=== PATIENT | male | born 1980 | race Caucasian/White ===

== ENCOUNTER 2025-05-07 15:43 | Inpatient (IN) | payer MEDICAID, OTHER ==
[~2025-05-07] VITALS: Ht 172.7 cm; Wt 115.5 kg
--- NOTE | 2025-05-07 17:23 | ED.PDOC ---
GI ASSESSMENT HPI Comments 44 year old male presents to the ED with a chief complaint of jaundice onset 2 weeks. Patient states he has been experiencing jaundice for the past 2 weeks, for the past month has been experiencing nausea/vomiting. For the past year, patient has experienced about 3 episodes, he experiences nausea/vomiting and abdominal pain for a few weeks, resolves on its own. Last PCP visit was over 12 years ago. Denies any PMHx as well as diarrhea, fever, chills, diarrhea, constipation, dysuria, hematuria, hematemesis, fever, chills, chest pain, shortness of breath. No other symptoms or modifying factors present at this time. Chief Complaint: Abdominal Pain Time Seen by MD: 17:15 Reviewed Notes: Nurses Notes, Medications, Allergies Allergies: Coded Allergies: NO KNOWN ALLERGIES (Unverified , 05/07/25) Information Source: Patient Mode of Arrival: Ambulatory Timing: Weeks Duration: Since onset Prehospital treatment: None Severity: Moderate Recent: None Recent Hx of: None Pain Location: Diffuse Modifying Factors: Nothing Associated sign and symptoms: Nausea, Vomiting, Abdominal Pain, Other Past Medical History PAST MEDICAL HISTORY: Denies Surgical History: Denies all surgeries Family History Family History: Reviewed,noncontributory to illness, No family hx of Cancer, No family hx of DM, No family hx of Heart shawanda, No family hx of HTN, No family hx ofKidney shawanda, No family hx of Liver shawanda, No family hx of Lung shawanda, No family hx of Stroke Social History Smoker: Non-Smoker Alcohol: Denies ETOH Use Drugs: Denies Drug Use Lives In: Home Constitutional: denies: chills, diaphoresis, fatigue, fever, malaise, sweats, weakness, others EENTM: denies: blurred vision, double vision, ear bleeding, ear discharge, ear drainage, ear pain, ear ringing, eye pain, eye redness, hearing loss, mouth pain, mouth swelling, nasal discharge, nose bleeding, nose congestion, nose pain, photophobia, tearing, throat pain, throat swelling, voice changes, others Respiratory: denies: cough, hemoptysis, orthopnea, SOB at rest, shortness of breath, SOB with excertion, stridor, wheezing, others Cardiovascular: denies: chest pain, dizzy spells, diaphoresis, Dyspnea on exertion, edema, irregular heart beat, left arm pain, lightheadedness, palpitations, PND, syncope, others Gastrointestinal: reports: abdominal pain, nausea, vomiting; denies: abdomen distended, blood streaked bowels, constipated, diarrhea, dysphagia, difficulty swallowing, hematemesis, melena, poor appetite, poor fluid intake, rectal bleeding, rectal pain, others Genitourinary: denies: burning, dysuria, flank pain, frequency, hematuria, incontinence, penile discharge, penile sore, pain, testicle pain, testicle swelling, urgency, others Neurological: denies: dizziness, fainting, headache, left sided numbness, left sided weakness, numbness, paresthesia, pre-existing deficit, right sided numbness, right sided weakness, seizure, speech problems, tingling, tremors, weakness, others Musculoskeletal: denies: back pain, gout, joint pain, joint swelling, muscle pain, muscle stiffness, neck pain, others Integumetry: reports: change in color (jaundice); denies: bruises, change in hair/nails, dryness, laceration, lesions, lumps, rash, wounds, others Allergic/Immunocompromised: denies: Difficulty Healing, Frequent Infections, Hives, Itching, others Hematologic/Lymphatic: denies: anemia, blood clots, easy bleeding, easy bruising, swollen glands, others Endocrine: denies: excessive hunger, excessive sweating, excessive thirst, excessive urination, flushing, intolerance to cold, intolerance to heat, unexpl ained weight gain, unexplained weight loss, others Psychiatric: denies: anxiety, bipolar disorder, depression, hopeless, panic disorder, schizophrenia, sleepless, suicidal, others All Other Systems: Reviewed and Negative Physical Exam General Appearance: Normal HEENT: Normal ENT Inspection, Pharynx Normal, TMs Normal Neck: Full Range of Motion, Non-Tender, Normal, Normal Inspection Respiratory: Chest Non-Tender, Lungs Clear, No Accessory Muscle Use, No Respiratory Distress, Normal Breath Sounds Cardiovascular: No Edema, No JVD, No Murmur, No Gallop, Normal Peripheral Pulses, Regular Rate/Rhythm Breast Exam: Deferred Gastrointestinal: Distended, No Organomegaly, No Pulsatile Mass, Normal Bowel Sounds, Soft Genitalia: Deferred Pelvic: Deferred Rectal: Deferred Extremities: No calf tenderness, Normal capillary refill, Normal inspection, Normal range of motion, Non-tender, No pedal edema Musculoskeletal : Apperance: Normal Neurologic: Alert, user interface artist II-XII nml as Tested, No Motor Deficits, Normal Affect, Normal Mood, No Sensory Deficits Cerebellar Function: Normal Reflexes: Normal Skin: Jaundice Lymphatic: No Adenopathy Was a procedure done? Was a procedure done?: No GI differential Dx Differential Diagnosis: Appendicitis, Bowel Obstruction, Cholangitis, Cholecystitis Other Differential Diagnosis Cirrhosis, liver failure, X-Ray, Labs, Meds, VS Vital Signs Date Time Temp Pulse Resp B/P (MAP) Pulse Ox O2 Delivery O2 Flow Rate FiO2 05/07/25 19:30 98.4 91 14 120/75 (90) 97 98.4 05/07/25 17:47 98.4 96 12 118/71 (87) 97 98.4 05/07/25 17:47 96 12 97 Room Air* 0 21 05/07/25 15:46 97.9 90 16 122/70 97 97.9 Lab Test 05/07/25 19:35 05/07/25 17:53 Range/Units Urine Color Dark-orange Yellow Urine Clarity Turbid H Clear Urine pH 6.0 5.0-9.0 Urine Specific [place] 1.019 1.001-1.035 Urine Protein Trace H Negative Urine Ketones Negative Negative Urine Blood Negative Negative /uL Urine Nitrite Negative Negative Urine Bilirubin 4+ Negative Urine Urobilinogen 2 H Negative mg/dL Urine Leukocyte Esterase Negative Negative /uL Urine RBC 1 0 - 3 /hpf Urine Microscopic WBC 6 H 0-3 /HPF Urine Squamous Epithelial Cells Few <5 /hpf Urine Bacteria Mod H None Seen /hpf Urine Mucus Few None Seen Urine Glucose Normal Normal mg/dL White Blood Count 9.7 4.4-10.8 10^3/uL Red Blood Count 2.98 L 4.5-5.90 10^6/uL Hemoglobin 12.2 L 13.5-17.5 g/dL Hematocrit 33.4 L 41.0-53.0 % Mean Corpuscular Volume 112.2 H 80.0-100.0 fL Mean Corpuscular Hemoglobin 41.1 H 28.0-32.0 pg Mean Corpuscular Hemoglobin Concent 36.6 H 32.0-36.0 g/dL Red Cell Distribution Width 18.7 H 11.8-14.3 % Platelet Count 268 140-450 10^3/uL Mean Platelet Volume 6.8 L 6.9-10.8 fL Neutrophils (%) (Auto) 80.8 H 37.0-80.0 % Lymphocytes (%) (Auto) 9.5 L 10.0-50.0 % Monocytes (%) (Auto) 7.3 0.0-12.0 % Eosinophils (%) (Auto) 1.6 0.0-7.0 % Basophils (%) (Auto) 0.8 0.0-2.0 % Neutrophils # (Auto) 7.9 1.6-8.6 10 ^3/uL Lymphocytes # (Auto) 0.9 0.4-5.4 10 ^3/uL Monocytes # (Auto) 0.7 0-1.3 10 ^3/uL Eosinophils # (Auto) 0.2 0-0.8 10 ^3/uL Basophils # (Auto) 0.1 0-0.2 10 ^3/uL Nucleated Red Blood Cells 0.1 % Prothrombin Time 13.5 H 9.3-11.8 sec Prothrombin Time INR 1.31 H 0.9-1.15 D-Dimer, Quantitative 0.80 H 0.0-0.49 mg/L FEU Sodium Level 133 L 136-145 mmol/L Potassium Level 3.1 L 3.5-5.1 mmol/L Chloride Level 95 L 98-107 mmol/L Carbon Dioxide Level 25 20-31 mmol/L Anion Gap 13 5-15 Blood Urea Nitrogen 10 9-23 mg/dL Creatinine 1.42 H 0.700-1.30 mg/dL Glomerular Filtration Rate Calc 62 >90 mL/min BUN/Creatinine Ratio 7.0 L 10.0-20.0 Serum Glucose 106 74-106 mg/dL Calcium Level 8.2 L 8.7-10.4 mg/dL Total Bilirubin 29.1 H 0.2-1.0 mg/dL Aspartate Amino Transferase (AST) 260 H 13-40 U/L Alanine Aminotransferase (ALT) 82 H 7-40 U/L Alkaline Phosphatase 242 H 46-116 U/L Total Protein 5.7 5.7-8.2 g/dL Albumin 3.0 L 3.2-4.8 g/dL Lipase 34 12-53 U/L X-Ray, Labs, Meds, VS Comment Gallbladder ultrasound: IMPRESSION: Dilated 7 mm common duct. Please correlate with laboratory values and consider MRCP if warranted. Cholelithiasis with mild gallbladder wall thickening. Hepatomegaly with diffuse hepatic steatosis. Right pleural effusion. Trace ascites. Moderate splenomegaly. Patient will be admitted for general surgery consult Patient will be started on ceftriaxone and Flagyl Time of 1ST Reevaluation: 17:45 Reevaluation 1ST: Unchanged Patient Education/Counseling: Diagnosis, Treatment, Prognosis Family Education/Counseling: No Family Present SEPSIS Sepsis Screen Date sepsis recognized/suspect: May 07, 2025 Time Sepsis recognized/suspect: 1547 Recent Procedure: No On Antibiotic Therapy: No Respiratory Rate >20: No Heart Rate >90: No Temp<36 C (96.8 F) or >38.3 C: No SBP <90 or MAP <65 mmHG: No New Acute Mental Status Change: No Is the patient on CPAP, BIPAP,: No Physician Orders Ct Ab Pel Wo Con-No Oral Or Iv (05/07/25 17:16) Gallbladder (05/07/25 18:57) Metronidazole 500mg/100ml (Flagyl 500mg/ (05/07/25 20:00) Vital Signs Date Time Temp Pulse Resp B/P (MAP) Pulse Ox O2 Delivery O2 Flow Rate FiO2 05/07/25 19:30 98.4 91 14 120/75 (90) 97 98.4 05/07/25 17:47 98.4 96 12 118/71 (87) 97 98.4 05/07/25 17:47 96 12 97 Room Air* 0 21 05/07/25 15:46 97.9 90 16 122/70 97 97.9 Laboratory Tests Test 05/07/25 17:53 White Blood Count 9.7 10^3/uL (4.4-10.8) Departure 1 Departure Time of Disposition: 20:06 Impression: Primary Impression: Cholecystitis Disposition: ADMITTED INPATIENT Condition: Stable Critical Care Note Critical Care Time?: No Stability Stability form required: No Heart Score Heart Score: Heart Score Response (Comments) Value History N/A 0 EKG N/A 0 Age N/A 0 Risk Factors N/A 0 Troponin N/A 0 Total 0 I personally scribed for JAGDISH FORD ([email or web address]) on 05/07/25 at 17:23. Electronically submitted by Nica Mcfadden ([email or web address]). JAGDISH FORD May 07, 2025 17:23
[2025-05-07 17:47] VITALS: PULSE 96; RESP 12; O2SAT 97
[2025-05-07 18:12] LABS: Hematocrit 33.4 % (41.0-53.0); Hemoglobin 12.2 g/dL (13.5-17.5); Mean Corpuscular Hemoglobin 41.1 pg (28.0-32.0); Mean Corpuscular Volume 112.2 fL (80.0-100.0); Nucleated Red Blood Cells % 0.1 %
--- NOTE | 2025-05-07 18:42 | DVH ---
Exam: CT CT AB PEL WO CON-NO ORAL OR IV History: jaundice Comparison Study: None TECHNIQUE: Multidetector CT of the abdomen and pelvis without IV contrast. Axial, coronal and sagitta l multiplanar reformats were obtained from the axial data set by the technologist. Radiation Dose Information: CT Dose: CTDI volume is 26.54 mGy. Dose-length product is 3.92 mGy*cm FINDINGS: The lung bases are clear. Partially visualized heart is unremarkable. Severe hepatomegaly with hepatic steatosis. Spleen, pancreas and adrenal glands unremarkable. Decompr essed gallbladder with multiple gallstones. Trace ascites limited evaluation for pericholecystic krissy ma. Kidneys, and ureters unremarkable. Mild wall thickening of the Urinary bladder which is most likely f rom inadequate distention. Prostate is normal in size with calcifications. Gastric wall thickening. Mild wall Thickening of proximal small bowel loops. The remainder of the sm all bowel loops unremarkable. Appendix is not well-visualized. Wall thickening of the ascending colon , transverse colon, sigmoid and rectum. Trace ascites. No evidence of intraperitoneal free air. No evidence of aortic aneurysm. No significant lymphadenopathy. Small fat containing bilateral inguinal lymph nodes. [id number] body wall edema. No evidence of acute osseous abnormalities. Sclerotic focus of the right acetabulum and left proximal femur which m ay represent small bone islands blastic lesions not excluded. IMPRESSION: Severe hepatomegaly with hepatic steatosis. Trace ascites. Wall thickening of the stomach and proximal small bowel. Correlate for gastroenteritis. Wall thickening of the ascending colon, transverse colon, sigmoid and rectum. Correlate for colitis Cholelithiasis with trace ascites limiting evaluation for pericholecystic edema. If there is concern for acute cholecystitis, ultrasound should be considered for further evaluation. [id number] body wall edema.
[2025-05-07 18:44] LABS: Anion Gap 13 (5-15)
[2025-05-07 18:45] LABS: Alanine Aminotransferase 82 U/L (7-40); Albumin 3.0 g/dL (3.2-4.8); Alkaline Phosphatase 242 U/L (46-116); Bilirubin, Total 29.1 mg/dL (0.2-1.0); Calcium 8.2 mg/dL (8.7-10.4); Carbon Dioxide 25 mmol/L (20-31); Chloride 95 mmol/L (98-107); Glucose 106 mg/dL (74-106); Potassium 3.1 mmol/L (3.5-5.1); Sodium 133 mmol/L (136-145); Total Protein 5.7 g/dL (5.7-8.2)
[2025-05-07 18:59] LABS: BUN/Creatinine Ratio 7.0 (10.0-20.0); Blood Urea Nitrogen 10 mg/dL (9-23); Lipase 34 U/L (12-53)
--- NOTE | 2025-05-07 19:56 | DVH ---
CLINICAL HISTORY: jaundice TECHNIQUE: Transabdominal sonogram was performed of the right upper quadrant. COMPARISON: None FINDINGS: The liver is increased in echogenicity. There is no focal parenchymal abnormality. No intrahepatic b iliary ductal dilatation is present. The liver measures 26.4 cm. The gallbladder is packed with stones. There is mild 4 mm wall thickening and no pericholecystic flui d. The sonographic rivera's sign was reported to be absent. The common bile duct is increased in caliber, measuring 7 mm. The visualized pancreas is grossly unremarkable. The spleen is moderately enlarged, measuring 15.4 c m in diameter. There is trace ascites. Right pleural effusion The right kidney is normal in echogenicity and measures 12 cm in length. There is no evidence for hyd ronephrosis or calculi. IMPRESSION: Dilated 7 mm common duct. Please correlate with laboratory values and consider MRCP if warranted. Cholelithiasis with mild gallbladder wall thickening. Hepatomegaly with diffuse hepatic steatosis. Right pleural effusion. Trace ascites. Moderate splenomegaly.
[2025-05-07 20:24] LABS: Urine Protein, UAD TRACE (Negative)
[2025-05-07 20:26] LABS: INR 1.31 (0.9-1.15); Prothrombin Time 13.5 sec (9.3-11.8)
[2025-05-07 21:24] VITALS: PULSE 91; RESP 16; O2SAT 98
[2025-05-07] MEDS: POTASSIUM CHL 20 Meq TABLET PO ONE (22:13)
[2025-05-07 22:17] LABS: INR 1.33 (0.9-1.15); Partial Thromboplastin Time 30.6 SEC (24.5-34.5); Prothrombin Time 13.7 sec (9.3-11.8)
[2025-05-07 22:34] LABS: Cholesterol 203.0 mg/dL (< 200); HDL Cholesterol 7.0 mg/dL (40-59); Magnesium 2.2 mg/dL (1.6-2.6); Triglycerides 396.0 mg/dL (< 150)
[2025-05-07 22:53] LABS: Amphetamine Screen, Urine Neg (NEGATIVE); Barbiturate Scree,Urine Neg (NEGATIVE); Benzodiazephine Screen, Urine Neg (NEGATIVE); Cannabinoid Screen, Urine Neg (NEGATIVE); Cocaine Screen, Urine Neg (NEGATIVE); Opiate Scree,Urine Neg (NEGATIVE); Phencyclidine Screen, Urine Neg (NEGATIVE)
[2025-05-07 23:22] LABS: Lipase 39.0 U/L (12-53)
--- NOTE | 2025-05-07 23:43 | DVHHPRES ---
History of Present Illness Resident Creating Document: MARIAELENA GANDHI History of Present Illness This is a 44-year-old male with questionable past medical history of hemorrhoids, hypertension, presented to the ER with a chief complaint of jaundice since 2 weeks. Patient reports his friends and coworkers 1st noticed ye llowing of skin color 2 weeks ago, which progressively worsened, urged his visit to the ER. He also complained of nausea, vomiting, constipation for the last 1 month. He complained of variable episodes of vomiting ranging from 2-5 daily with very few days without any nausea vomiting for the last 1 month. Vomitus contains food content and is sometimes yellow-green in color, no blood in vomitus seen. He reports noticing some abdominal distention and occasional palpitations. He also complained of seeing blood on toilet paper. He also reports unintentional weight loss of 100 lb since the last year. Patient has reported multiple episodes of nausea, vomiting, alternating diarrhea constipation for the last 1 year. In May 2024 and October 2024 he had 1 month of nausea, vomiting, diarrhea. Previous hospitalization: He reports seeing primary doctor at the age of 9 years. PMHx: Questionable history of Hemorrhoids, hypertension. In 2012, he went to a walk-in clinic and was told he had high blood pressure, which he has been managing with lifestyle changes, he has not establish primary care. PSHx: No surgical history Family history: Unknown cancer in mother. Father was adopted, unknown family history Social history: Quit smoking 15 years ago, previously smoked one pack a day for 13 years. Alcohol use reports 20 drinks every day, last used yesterday midnight. No recreational drug use reported. Lives in house with . Full code. Next of kin . Home medication: No home medications Allergic history: No allergy history reported Patient was examined at bedside today. Vitals show tachycardia. Patient is admitted for further evaluation and management. Review of Systems Cardiovascular: Palpitations Gastrointestinal: Nausea, Vomiting, Constipation Skin: Jaundice Allergies: Coded Allergies: NO KNOWN ALLERGIES (Unverified , 05/07/25) Exam Vital Signs Vital Signs Date Time Temp Pulse Resp B/P (MAP) Pulse Ox O2 Delivery O2 Flow Rate FiO2 05/07/25 21:24 91 16 98 Room Air* 0 21 05/07/25 19:30 98.4 120/75 (90) 98.4 Exam General: Jaundice. Patient is not in apparent distress. Patient alert and oriented in person, place and time. Patient following commands. HEENT: Bilateral scleral icterus. Normocephalic, atraumatic, dry mucous membranes Respiratory/pulmonary: Clear lungs bilaterally, vesicular murmurs present in almost all lung arora, no associated crackles or wheezes. Cardiovascular: Normal heart sounds S1 and S2 with no associated murmurs Abdomen: Abdominal distention, without any palpable tenderness. Hepatomegaly with liver palpable below the costal margin. Extremities: Pitting edema grade 1 over the shins. Peripheral Pulses: 3+ Radial (R). 3+ Radial (L). 3+ Dorsalis pedis (R). 3+ Dorsalis pedis(L) Skin: Jaundice. Neurological: Intact cranial nerves with no focal neurologic deficits Labs/Xrays Labs Test 05/07/25 21:41 05/07/25 21:00 05/07/25 19:35 05/07/25 17:53 Range/Units Reticulocyte Count (auto) 2.62 H 0.5-1.5 % Prothrombin Time 13.7 H 9.3-11.8 sec Prothrombin Time INR 1.33 H 0.9-1.15 Activated Partial Thromboplast Time 30.6 24.5-34.5 SEC Hemoglobin A1c 4.1 <5.7 % A1C Serum Osmolality 273 L 278-298 mOsm/kg Lactic Acid Level 1.9 0.4-2.0 mmol/L Phosphorus Level 2.3 L 2.4-5.1 mg/dL Magnesium Level 2.2 1.6-2.6 mg/dL Ferritin 700.0 H 22-322 ng/mL C-Reactive Protein High Sensitivity 5.07 H <1.0 mg/dL Triglycerides Level 396 H < 150 mg/dL Cholesterol Level 203 H < 200 mg/dL LDL Cholesterol 104 H < 100 mg/dL HDL Cholesterol 7 L 40-59 mg/dL Lipase 39 12-53 U/L Vitamin B12 Level 501 211-911 pg/mL Vitamin D 25-Hydroxy 20.5 L 30.0-100 ng/mL Folic Acid 6.02 >5.38 ng/mL Thyroid Stimulating Hormone (TSH) 5.77 H 0.55-4.78 uIU/mL Urine Opiates Screen Neg NEGATIVE Urine Fentanyl Screen Neg NEGATIVE Urine Barbiturates Screen Neg NEGATIVE Urine Phencyclidine Screen Neg NEGATIVE Urine Amphetamines Screen Neg NEGATIVE Urine Benzodiazepines Screen Neg NEGATIVE Urine Cocaine Screen Neg NEGATIVE Urine Cannabinoids Screen Neg NEGATIVE Urine Color Dark-orange Yellow Urine Clarity Turbid H Clear Urine pH 6.0 5.0-9.0 Urine Specific [place] 1.019 1.001-1.035 Urine Protein Trace H Negative Urine Ketones Negative Negative Urine Blood Negative Negative /uL Urine Nitrite Negative Negative Urine Bilirubin 4+ Negative Urine Urobilinogen 2 H Negative mg/dL Urine Leukocyte Esterase Negative Negative /uL Urine RBC 1 0 - 3 /hpf Urine Microscopic WBC 6 H 0-3 /HPF Urine Squamous Epithelial Cells Few <5 /hpf Urine Bacteria Mod H None Seen /hpf Urine Mucus Few None Seen Urine Glucose Normal Normal mg/dL White Blood Count 9.7 4.4-10.8 10^3/uL Red Blood Count 2.98 L 4.5-5.90 10^6/uL Hemoglobin 12.2 L 13.5-17.5 g/dL Hematocrit 33.4 L 41.0-53.0 % Mean Corpuscular Volume 112.2 H 80.0-100.0 fL Mean Corpuscular Hemoglobin 41.1 H 28.0-32.0 pg Mean Corpuscular Hemoglobin Concent 36.6 H 32.0-36.0 g/dL Red Cell Distribution Width 18.7 H 11.8-14.3 % Platelet Count 268 140-450 10^3/uL Mean Platelet Volume 6.8 L 6.9-10.8 fL Neutrophils (%) (Auto) 80.8 H 37.0-80.0 % Lymphocytes (%) (Auto) 9.5 L 10.0-50.0 % Monocytes (%) (Auto) 7.3 0.0-12.0 % Eosinophils (%) (Auto) 1.6 0.0-7.0 % Basophils (%) (Auto) 0.8 0.0-2.0 % Neutrophils # (Auto) 7.9 1.6-8.6 10 ^3/uL Lymphocytes # (Auto) 0.9 0.4-5.4 10 ^3/uL Monocytes # (Auto) 0.7 0-1.3 10 ^3/uL Eosinophils # (Auto) 0.2 0-0.8 10 ^3/uL Basophils # (Auto) 0.1 0-0.2 10 ^3/uL Nucleated Red Blood Cells 0.1 % D-Dimer, Quantitative 0.80 H 0.0-0.49 mg/L FEU Sodium Level 133 L 136-145 mmol/L Potassium Level 3.1 L 3.5-5.1 mmol/L Chloride Level 95 L 98-107 mmol/L Carbon Dioxide Level 25 20-31 mmol/L Anion Gap 13 5-15 Blood Urea Nitrogen 10 9-23 mg/dL Creatinine 1.42 H 0.700-1.30 mg/dL Glomerular Filtration Rate Calc 62 >90 mL/min BUN/Creatinine Ratio 7.0 L 10.0-20.0 Serum Glucose 106 74-106 mg/dL Calcium Level 8.2 L 8.7-10.4 mg/dL Total Bilirubin 29.1 H 0.2-1.0 mg/dL Aspartate Amino Transferase (AST) 260 H 13-40 U/L Alanine Aminotransferase (ALT) 82 H 7-40 U/L Alkaline Phosphatase 242 H 46-116 U/L Total Protein 5.7 5.7-8.2 g/dL Albumin 3.0 L 3.2-4.8 g/dL SEPSIS Sepsis Screen Date sepsis recognized/suspect: May 07, 2025 Time Sepsis recognized/suspect: 1746 Recent Procedure: No On Antibiotic Therapy: No Respiratory Rate >20: No Heart Rate >90: No Temp<36 C (96.8 F) or >38.3 C: No SBP <90 or MAP <65 mmHG: No New Acute Mental Status Change: No Is the patient on CPAP, BIPAP,: No Physician Orders Ct Ab Pel Wo Con-No Oral Or Iv (05/07/25 17:16) Gallbladder (05/07/25 18:57) Haptoglobin (05/07/25 21:23) Stool Occult Blood (05/07/25 21:23) Acute Hepatitis Panel (05/07/25 21:25) Iron Panel (05/07/25 21:41) Admit (05/07/25 23:34) Allergies (05/07/25 23:34) Code Status (05/07/25 23:34) 0.9% Ns 1000 Ml (05/07/25 23:45) Ondansetron Hcl (Zofran) (05/07/25 23:45) Complete Blood Count (05/08/25 04:00) Comprehensive Metabolic Panel (05/08/25 04:00) Npo (Nothing By Mouth) Diet (05/08/25 Breakfast) Condition: Serious (05/07/25 23:34) Morphine Sulfate Injection (05/07/25 23:45) Lovenox 40mg (05/07/25 23:45) Oxygen By Nasal Cannula (05/07/25 23:34) Stat Ekg For Chest Pain (05/07/25 23:34) Notify Of Changes From Base (05/07/25 23:34) Php Programmer For 24 Hours (05/07/25 23:34) Emergency Dysrhythmia Protocol (05/07/25 23:34) Rhythm Strips Once Every Shift (05/07/25 23:34) Metronidazole Ivpb Flagyl (05/08/25 06:00) Metronidazole Ivpb Flagyl (05/07/25 23:45) Ceftriaxone Ivpb Rocephin (05/07/25 23:45) Ceftriaxone Ivpb Rocephin (05/08/25 09:00) NS (05/07/25 23:45) NS (05/07/25 23:45) Vital Signs Date Time Temp Pulse Resp B/P (MAP) Pulse Ox O2 Delivery O2 Flow Rate FiO2 05/07/25 21:24 91 16 98 Room Air* 0 21 05/07/25 19:30 98.4 91 14 120/75 (90) 97 98.4 05/07/25 17:47 98.4 96 12 118/71 (87) 97 98.4 05/07/25 17:47 96 12 97 Room Air* 0 21 05/07/25 15:46 97.9 90 16 122/70 97 97.9 Laboratory Tests Test 05/07/25 17:53 05/07/25 21:41 White Blood Count 9.7 10^3/uL (4.4-10.8) Lactic Acid Level 1.9 mmol/L (0.4-2.0) Medications Medications Dose Ordered Sig/Natalee Route Start Time Stop Time Status Last Admin Dose Admin Ceftriaxone Sodium 50 ml @ 100 mls/hr ONCE ONCE IV 05/07/25 20:00 05/07/25 20:29 DC 05/07/25 20:43 100 MLS/HR Metronidazole 100 ml @ 100 mls/hr ONCE ONCE IV 05/07/25 20:00 05/07/25 20:59 DC 05/07/25 20:43 100 MLS/HR Assessment/Plan Assessment/Plan Severe Sepsis due to below Acute infectious bacterial Gastroenteritis/ Colitis Labs shows neutrophilic leukocytosis,lymphocytosis, lactic acidosis CT abdomen shows wall thickening of stomach and proximal bowel wall, and ascending colon, transverse colon, sigmoid and rectum Blood culture, stool culture ordered IV ceftriaxone 1 g daily, metronidazole 500 mg q.8 IV fluid bolus and maintenance Cholelithiasis Rule out choledocholithiasis/ obstructive common bile duct dilation Rule out GI malignancy Ultrasound shows dilated common bile duct measuring 7 mm, cholelithiasis with gallbladder wall thickening MRCP ordered GI consulted Macrocytic hypochromic anemia Elevated reticulocyte count, ferritin Right pleural effusion with trace ascites Monitor clinically Hyponatremia with low serum osmolality, likely due to dehydration KAYLEIGH due to hemodynamic instability (VMN) No baseline available Discussed avoiding nephrotoxins like NSAIDS, contrast Low salt diet, maintain hydration with IV fluid bolus and maintenance Repeat BMP Hypokalemia Hypocalcemia with hypoalbuminemia; corrected calcium WNL Supplemented Monitor BMP Hepatic steatosis Alcoholic hepatitis likely Moderate splenomegaly Transaminitis Hyperbilirubinemia CT abdomen and Ultrasound shows hepatomegaly with diffuse hepatic steatosis Maddrey score 12.8; suggesting good prognosis Meld score 27 Ethanol abuse Counseled strongly on ethanol cessation over 16 minutes Drug screen negative. Negative alcohol in blood DVT ruled out Doppler ultrasound negative for DVT DIET: NPO DVT PROPHYLAXIS: Lovenox GI PROPHYLAXIS: Protonix CODE STATUS: Goals of care discussed with patient at bedside for more than 37 minutes. Full code DISPOSITION: Med/surge Patient's status and plan discussed with the patient. Case discussed with Dr. Gibson. Plan discussed with: Patient, Spouse, Other (Nurses) My Orders Orders - MARIAELENA GANDHI RESIDENT Procedure Category Date Status Time Haptoglobin LAB 05/07/25 In Process 21:23 Stool Occult Blood LAB 05/07/25 Logged 21:23 Acute Hepatitis Panel LAB 05/07/25 In Process 21:25 Admit ADMIT 05/07/25 Verified 23:34 Allergies MARGUERITE 05/07/25 Verified 23:34 Code Status CODE 05/07/25 Verified 23:34 0.9% Ns 1000 Ml PHA 05/07/25 Verified 23:45 Ondansetron Hcl PHA 05/07/25 Verified (Zofran) 23:45 Complete Blood Count LAB 05/08/25 Verified 04:00 Comprehensive LAB 05/08/25 Verified Metabolic Panel 04:00 Npo (Nothing By DIET 05/08/25 Verified Mouth) Diet Breakfast Condition: Serious [facility] 05/07/25 Verified 23:34 Morphine Sulfate PHA 05/07/25 Verified Injection 23:45 Lovenox 40mg PHA 05/07/25 Verified 23:45 Oxygen By Nasal RT 05/07/25 Verified Cannula 23:34 Stat Ekg For Chest [facility] 05/07/25 Verified Pain 23:34 Notify Md Of Changes [facility] 05/07/25 Verified From Base 23:34 Php Programmer For [facility] 05/07/25 Verified 24 Hours 23:34 Emergency Dysrhythmia [facility] 05/07/25 Verified Protocol 23:34 Rhythm Strips Once [facility] 05/07/25 Verified Every Shift 23:34 Metronidazole Ivpb PHA 05/08/25 Verified Flagyl 06:00 Metronidazole Ivpb PHA 05/07/25 Verified Flagyl 23:45 Ceftriaxone Ivpb PHA 05/07/25 Verified Rocephin 23:45 Ceftriaxone Ivpb PHA 05/08/25 Verified Rocephin 09:00 NS PHA 05/07/25 Verified 23:45 NS PHA 05/07/25 Verified 23:45 Date of Service: May 07, 2025 Billing Provider: ERICK ROSSI MD Common Visit Codes: [id number] INP/OBS CARE (HIGH) Secondary Visit Codes: [id number]-[id number] CARE PLAN 30 MINUTES MARIAELENA GANDHI RESIDENT May 07, 2025 23:43 XIAO WILL RESIDENT May 08, 2025 08:52
[2025-05-07] MEDS ORDERED: MORPHINE SULFATE INJ 2 MG/ml SYRG IV PRN (23:45)
[2025-05-07] MEDS ORDERED: ONDANSETRON HCL 4 MG/2 ML VIAL IV PRN (23:45)
[2025-05-07] MEDS: SODIUM CHLORIDE 0.9% 500 ML IV ONE (23:45)
[2025-05-07] MEDS ORDERED: SODIUM CHLORIDE 0.9% 1,000 ML IV ONE (23:45)
[2025-05-08] VITALS (8 sets, daily range): BP systolic 100–126; BP diastolic 45–77; PULSE 80–102; RESP 16–20; TEMP 97.3–98.8; O2SAT 94–98
[2025-05-08 00:37] LABS: Ferritin 659.9 ng/mL (22-322); Iron 73.0 ug/dL (65-175)
[2025-05-08 00:48] LABS: Total Iron Binding Capacity 180.0 ug/dL (250-425)
--- NOTE | 2025-05-08 01:36 | DVH ---
Right lower extremity venous duplex Clinical History: Lower extremity swelling with elevated D-dimer Comparison: None Technique: Duplex Doppler evaluation of the deep venous system of the right lower extremity from the common femo ral vein to the popliteal vein including color Doppler and spectral/pulsed waveform analysis was perf ormed. Findings: The common femoral vein demonstrates appropriate compressibility and waveform variability. There is compressibility/patency of the great saphenous vein at the proximal thigh. The femoral vein demonstrates appropriate compressibility and waveform variability. The deep femoral vein demonstrates appropriate compressibility and waveform variability. The popliteal vein demonstrates appropriate compressibility and waveform variability. There is normal compressibility at the tibioperoneal trunk. Impression: 1. No right femoropopliteal venous thrombosis. 2. Contralateral common femoral vein is patent.
[2025-05-08] MEDS: ENOXAPARIN SOD 40 MG/0.4 ML SYRINGE SC SCH (01:47)
[2025-05-08] MEDS: SODIUM CHLORIDE 0.9% 1,000 ML IV SCH (01:47)
[2025-05-08 02:51] LABS: Hemoglobin 9.6 g/dL (13.5-17.5); Mean Corpuscular Volume 113.4 fL (80.0-100.0)
[2025-05-08 02:53] LABS: Hematocrit 26.5 % (41.0-53.0); Mean Corpuscular Hemoglobin 41.1 pg (28.0-32.0); Nucleated Red Blood Cells % 0.0 %
[2025-05-08 03:00] LABS: Carbon Dioxide 25 mmol/L (20-31); Glucose 87 mg/dL (74-106)
[2025-05-08 03:05] LABS: Albumin 2.7 g/dL (3.2-4.8); Alkaline Phosphatase 213 U/L (46-116); Bilirubin, Total 27.6 mg/dL (0.2-1.0); Calcium 8.0 mg/dL (8.7-10.4)
[2025-05-08 03:06] LABS: BUN/Creatinine Ratio 7.0 (10.0-20.0)
[2025-05-08 03:07] LABS: Alanine Aminotransferase 76 U/L (7-40); Blood Urea Nitrogen 9 mg/dL (9-23); Total Protein 5.3 g/dL (5.7-8.2)
[2025-05-08 03:29] LABS: Anion Gap 12 (5-15); Chloride 95 mmol/L (98-107); Potassium 2.9 mmol/L (3.5-5.1); Sodium 132 mmol/L (136-145)
[2025-05-08] MEDS: POTASSIUM CHL 20MEQ/100ML 100 ML IV SCH (05:15)
[2025-05-08 05:59] LABS: Lactic Acid w/Reflex 2.1 mmol/L (0.4-2.0)
[2025-05-08] MEDS: SODIUM CHLORIDE 0.9% 2,000 ML IV ONE (06:00)
[2025-05-08] MEDS: PANTOPRAZOLE 40 MG/10 ML VIAL INJ IV SCH (10:00)
--- NOTE | 2025-05-08 10:09 | DVH ---
CLINICAL INFORMATION: Jaundice. Dilated common bile duct. TECHNIQUE: Multisequence multiplanar MRI images of the abdomen were obtained without IV contrast. Darryl helms T2-weighted MRCP images were obtained. 3D MRCP images were created. COMPARISON: Ultrasound dated 05/07/2025. CT dated 05/07/2025. FINDINGS: Limited MRCP images due to motion artifact. Common bile duct measures up to 4 mm in diamet er. No filling defect or stricture identified in the common bile duct on MRCP. Multiple gallstones vi sualized in the gallbladder. There is moderate pericholecystic fluid and wall thickening. Suspicious for acute cholecystitis in the appropriate clinical setting. Liver is enlarged, measuring up to 23.1 cm in craniocaudal dimension at the midclavicular line. Spleen is enlarged, measuring up to 16.8 cm in greatest dimension. No other significant abnormality identified given the limitations of the exami nation due to motion artifact. Probable small right pleural effusion. IMPRESSION: 1. Motion limited study. 2. Cholelithiasis with gallbladder wall thickening and pericholecystic fluid, suspected acute cholecy stitis in the appropriate clinical setting. 3. No biliary ductal dilatation. No filling defect or stricture identified in the common bile duct o n MRCP given the limitations of the examination. 4. Hepatosplenomegaly.
[2025-05-08 10:52] LABS: Hemoglobin 11.7 g/dL (13.5-17.5)
[2025-05-08 10:53] LABS: Hematocrit 32.7 % (41.0-53.0)
--- NOTE | 2025-05-08 11:34 | DVH ---
INDICATION: sob TECHNIQUE: Frontal view of the chest. COMPARISON: None FINDINGS: . The heart and mediastinal contours are grossly unremarkable. There is no evidence of pleural disea se. The lungs are clear. The bony structures of the chest are intact without fracture. IMPRESSION: 1. No evidence of acute disease.
[2025-05-08] MEDS: POTASSIUM CHL 20 Meq TABLET PO ONE (12:15)
--- NOTE | 2025-05-08 13:11 | DVHINCON2 ---
GI Consult Consult Note GI consult note Date of Consultation: 05/08/2025 Chief Complaint:? Malignancy, dilated common bile duct, jaundice Referring Physician: Dr. Colmenares H&P: 44-year-old male admitted with complains of jaundice for the past two weeks. Patient admits to feeling fatigued. Denies abdominal pain. No nausea or vomi ting. Denies melena or red blood in stool. No EGD in past. Patient usually has about 20 drinks every day, last drink was on Wednesday Per Patient Past Medical History: HTN, hemorrhoids Past Surgical History: Denies Social History: Quit smoking 15 years ago, previously smoked one pack a day for 13 years. Alcohol use reports 20 drinks every day, last used yesterday midnight. No recreational drug use reported. Lives in house with . Full code. Next of kin . Family History: Noncontributory Review of Systems: Constitutional: no fever, chill, weight loss HEENT:+ scleral icterus Heart: no chest pain, no chest pressure Lung: no cough, no dyspnea with exertion Abdomen: see HPI Physical exam: General: NAD, AAOX3 HEENT: + scleral icterus Chest: lung arora clear to auscultation Heart: RRR, no murmur Abdomen: non-distended, no tenderness to palpation, +BS Skin:+ jaundice Labs: Labs Test 05/08/25 10:39 05/08/25 02:04 05/07/25 21:41 05/07/25 21:00 Range/Units Hemoglobin 11.7 #L 13.5-17.5 g/dL Hematocrit 32.7 #L 41.0-53.0 % Potassium Level 3.2 L 3.5-5.1 mmol/L White Blood Count 11.7 H 4.4-10.8 10^3/uL Red Blood Count 2.34 L 4.5-5.90 10^6/uL Mean Corpuscular Volume 113.4 H 80.0-100.0 fL Mean Corpuscular Hemoglobin 41.1 H 28.0-32.0 pg Mean Corpuscular Hemoglobin Concent 36.3 H 32.0-36.0 g/dL Red Cell Distribution Width 18.7 H 11.8-14.3 % Platelet Count 311 140-450 10^3/uL Mean Platelet Volume 6.8 L 6.9-10.8 fL Neutrophils (%) (Auto) 80.1 H 37.0-80.0 % Lymphocytes (%) (Auto) 10.8 10.0-50.0 % Monocytes (%) (Auto) 7.3 0.0-12.0 % Eosinophils (%) (Auto) 1.4 0.0-7.0 % Basophils (%) (Auto) 0.4 0.0-2.0 % Neutrophils # (Auto) 9.4 H 1.6-8.6 10 ^3/uL Lymphocytes # (Auto) 1.3 0.4-5.4 10 ^3/uL Monocytes # (Auto) 0.9 0-1.3 10 ^3/uL Eosinophils # (Auto) 0.2 0-0.8 10 ^3/uL Basophils # (Auto) 0 0-0.2 10 ^3/uL Nucleated Red Blood Cells 0.0 % Sodium Level 132 L 136-145 mmol/L Chloride Level 95 L 98-107 mmol/L Carbon Dioxide Level 25 20-31 mmol/L Anion Gap 12 5-15 Blood Urea Nitrogen 9 9-23 mg/dL Creatinine 1.29 0.700-1.30 mg/dL Glomerular Filtration Rate Calc 70 >90 mL/min BUN/Creatinine Ratio 7.0 L 10.0-20.0 Serum Glucose 87 74-106 mg/dL Lactic Acid Level 2.1 *H 0.4-2.0 mmol/L Calcium Level 8.0 L 8.7-10.4 mg/dL Total Bilirubin 27.6 H 0.2-1.0 mg/dL Direct Bilirubin 19.2 H <0.3 mg/dL Aspartate Amino Transferase (AST) 242 H 13-40 U/L Alanine Aminotransferase (ALT) 76 H 7-40 U/L Alkaline Phosphatase 213 H 46-116 U/L B-Type Natriuretic Peptide 110.36 0-100 pg/mL Total Protein 5.3 L 5.7-8.2 g/dL Albumin 2.7 L 3.2-4.8 g/dL Carcinoembryonic Antigen 2.05 <=5.0 ng/mL Thyroid Stimulating Hormone (TSH) 5.59 H 0.55-4.78 uIU/mL Free Thyroxine (T4) Calculated 1.08 0.89-1.76 ng/dL Plasma/Serum Blood Alcohol < 3.0 <10 mg/dL Treponema pallidum Antibody Non-reactive Negative HIV (1&2) Antibody Negative Negative Reticulocyte Count (auto) 2.62 H 0.5-1.5 % Prothrombin Time 13.7 H 9.3-11.8 sec Prothrombin Time INR 1.33 H 0.9-1.15 Activated Partial Thromboplast Time 30.6 24.5-34.5 SEC Hemoglobin A1c 4.1 <5.7 % A1C Serum Osmolality 273 L 278-298 mOsm/kg Phosphorus Level 2.3 L 2.4-5.1 mg/dL Magnesium Level 2.2 1.6-2.6 mg/dL Iron Level 73 65-175 ug/dL Total Iron Binding Capacity 180 L 250-425 ug/dL Percent Iron Saturation 40.6 20-55 % Ferritin 659.9 H 22-322 ng/mL C-Reactive Protein High Sensitivity 5.07 H <1.0 mg/dL Triglycerides Level 396 H < 150 mg/dL Cholesterol Level 203 H < 200 mg/dL LDL Cholesterol 104 H < 100 mg/dL HDL Cholesterol 7 L 40-59 mg/dL Lipase 39 12-53 U/L Vitamin B12 Level 456 211-911 pg/mL Vitamin D 25-Hydroxy 22.4 L 30.0-100 ng/mL Folic Acid 1.70 >5.38 ng/mL Urine Osmolality 430 mOsm/kg Urine Opiates Screen Neg NEGATIVE Urine Fentanyl Screen Neg NEGATIVE Urine Barbiturates Screen Neg NEGATIVE Urine Phencyclidine Screen Neg NEGATIVE Urine Amphetamines Screen Neg NEGATIVE Urine Benzodiazepines Screen Neg NEGATIVE Urine Cocaine Screen Neg NEGATIVE Urine Cannabinoids Screen Neg NEGATIVE Test 05/07/25 19:35 05/07/25 17:53 05/07/25 00:00 Range/Units Urine Color Dark-orange Yellow Urine Clarity Turbid H Clear Urine pH 6.0 5.0-9.0 Urine Specific [place] 1.019 1.001-1.035 Urine Protein Trace H Negative Urine Ketones Negative Negative Urine Blood Negative Negative /uL Urine Nitrite Negative Negative Urine Bilirubin 4+ Negative Urine Urobilinogen 2 H Negative mg/dL Urine Leukocyte Esterase Negative Negative /uL Urine RBC 1 0 - 3 /hpf Urine Microscopic WBC 6 H 0-3 /HPF Urine Squamous Epithelial Cells Few <5 /hpf Urine Bacteria Mod H None Seen /hpf Urine Mucus Few None Seen Urine Glucose Normal Normal mg/dL D-Dimer, Quantitative 0.80 H 0.0-0.49 mg/L FEU Imaging: CT abdomen pelvis IMPRESSION: Severe hepatomegaly with hepatic steatosis. Trace ascites. Wall thickening of the stomach and proximal small bowel. Correlate for gastroenteritis. Wall thickening of the ascending colon, transverse colon, sigmoid and rectum. Correlate for colitis Cholelithiasis with trace ascites limiting evaluation for pericholecystic edema. If there is concern for acute cholecystitis, ultrasound should be considered for further evaluation. [id number] body wall edema. Abdominal ultrasound IMPRESSION: Dilated 7 mm common duct. Please correlate with laboratory values and consider MRCP if warranted. Cholelithiasis with mild gallbladder wall thickening. Hepatomegaly with diffuse hepatic steatosis. Right pleural effusion. Trace ascites. Moderate splenomegaly. MRCP IMPRESSION: 1. Motion limited study. 2. Cholelithiasis with gallbladder wall thickening and pericholecystic fluid, suspected acute cholecystitis in the appropriate clinical setting. 3. No biliary ductal dilatation. No filling defect or stricture identified in the common bile duct on MRCP given the limitations of the examination. 4. Hepatosplenomegaly. Assessment: Cholelithiasis Hepatosplenomegaly Alcoholic hepatic steatosis Heavy alcohol use Plan: Discussed with Dr. Malcolm Monitor labs Check ammonia Lactulose Prednisone 40 mg p.o. every day Diet as tolerated We will continue to monitor patient Plan discussed with patient and hospitalist team Thank you for this consult Date of Service: May 08, 2025 Billing Provider: KATE PACHECO Common Visit Codes: CONSULT ONLY Consultation Codes: [id number] CONSULT <60MIN KATE PACHECO May 08, 2025 13:11
[2025-05-08] MEDS: predniSONE 20 MG TAB PO SCH (14:27)
[2025-05-08] MEDS: LACTULOSE 20Gm/30ML SOLN PO SCH (14:27)
--- NOTE | 2025-05-08 19:18 | DVHPNRES ---
Progress Note Date Seen: May 08, 2025 Resident Creating Document: MERRITT ANAYA RESIDENT Medical Necessity Reason Pt with a Central, PICC or Fol: No Subjective Review of Systems Patient is a 44-year-old male with past medical history of hemorrhoids, hypertension, presented to [facility] ED with complaint of jaundice since 2 weeks. Patient reports his friends and coworkers 1st noticed yellowing of skin color 2 weeks ago, which progressively worsened, urged his visit to the ER. He also complained of nausea, vomiting, constipation for the last 1 month. He complained of variable episodes of vomiting ranging from 2-5 daily with very few days without any nausea vomiting for the last 1 month. Vomitus contains food content and is sometimes yellow-green in color, no blood in vomitus seen. patient disclosed a recent two-week episode of binge alcohol consumption and has had abdominal pain for the past month. His symptoms prompted evaluation in the ED for further workup of possible hepatic dysfunction, gastrointestinal pathology, and nutritional compromise.He reports noticing some abdominal distention and occasional palpitations. He also complained of seeing blood on toilet paper. He also reports unintentional weight loss of 100 lb since the last year. Patient has reported multiple episodes of nausea, vomiting, alternating diarrhea constipation for the last 1 year. In May 2024 and October 2024 he had 1 month of nausea, vomiting, diarrhea. Past medical history: Questionable history of Hemorrhoids, hypertension. In 2012, he went to a walk-in clinic and was told he had high blood pressure, which he has been managing with lifestyle changes, he has not establish primary care. Past surgical history: No surgical history Home medications: No home medications Social & Personal history: Quit smoking 15 years ago, previously smoked one pack a day for 13 years. Alcohol use reports 20 drinks every day, last used yesterday midnight. No recreational drug use reported. Lives in house with . Allergies: No allergy history reported Patient seen and examined at bedside. Patient is alert and oriented to time, place person and responding to all questions. Eyes: No Pain, No Vision change, No Conjunctivae inflammation, No Eyelid inflammation, No Other, No Redness ENT: No Ear pain, No Ear discharge, No Nose pain, No Nose discharge, No Nose congestion, No Mouth pain, No Mouth swelling, No Throat pain, No Throat swelling, No Other Cardiovascular: No Chest Pain, Palpitations, No Orthopnea, No Paroxysmal No Dyspnea, No Edema, No Lt Headedness, No Other Respiratory: No Cough, No Dry, No Shortness of breath, No SOB with exertion, No Wheezing, No Hemoptysis, No Pleuritic Pain, No Sputum, No Other Gastrointestinal: Nausea, Vomiting, No Abdominal Pain, No Diarrhea, C onstipation, No Melena, No Hematochezia, No Other Genitourinary: No Dysuria, No Frequency, No Incontinence, No Hematuria, No Retention, No Other Musculoskeletal: No other, No neck pain, No shoulder pain, No arm pain, No back pain, No hand pain, No leg pain, No foot pain Skin: No Rash, No Lesions, Jaundice, No Bruising, No Other Objective vital signs Vital Sign Date Time Temp Pulse Resp B/P (MAP) Pulse Ox O2 Delivery O2 Flow Rate FiO2 05/08/25 17:00 98.8 88 18 115/66 (82) 96 98.8 05/08/25 08:00 Room Air* 0 21 medications Current Medications Medications Dose Ordered Sig/Natalee Route Start Time Stop Time Status Last Admin Dose Admin Ondansetron HCl 4 mg Q4HP PRN IV 05/07/25 23:45 Morphine Sulfate 2 mg Q4HPRN PRN IV 05/07/25 23:45 Enoxaparin Sodium 40 mg HS SC 05/08/25 00:30 05/08/25 01:47 40 MG Metronidazole 100 ml @ 100 mls/hr Q8HR IV 05/08/25 06:00 05/08/25 14:00 100 MLS/HR Ceftriaxone Sodium 50 ml @ 100 mls/hr DAILY@2100 IV 05/08/25 21:00 Pantoprazole Sodium 40 mg DAILY IV 05/08/25 10:00 Lactulose 30 ml DAILY PO 05/08/25 14:27 05/08/25 14:27 30 ML Prednisone 40 mg DAILY PO 05/08/25 14:27 05/08/25 14:27 40 MG Examination General Appearance: Cooperative. Well developed. Well nourished. NAD Head Exam: Normal inspection Neck Exam: Normal inspection. Non-tender. Normal alignment Pulmonary/Respiratory: Chest non-tender. Clear bilateral breath sounds, no crackles, no wheezing. Cardiovascular/Chest: Regular rate and rhythm. No murmurs. No JVD. Peripheral Pulses: 2+ Radial (R). 2+ Radial (L). 2+ Pedal (R). 2+ Pedal (L) Abdominal Exam: Normal bowel sounds. Soft. normal abdomen, no visible veins, Nontender. No hepatospenomegaly. No masses Ankle Exam: Negative ankle edema Lower extremities: Negative lower extremity edema Neuro/Mental Status: A&O x4. Coherent. Thoughts/Psych: Normal thought pattern. Appropriate mood and affect. Good judgement and insight Skin Exam: Normal inspection. Normal color. Warm. Dry laboratory and microbiology Laboratory Tests 05/08/25 10:39 05/08/25 02:04 Test 05/08/25 02:04 Range/Units Serum Glucose 87 74-106 mg/dL Labs and/or images reviewed: Labs reviewed by me, Image(s) reviewed by me Problem List/Assessment/Plan Problem List/Assessment/Plan Assessment/Plan Severe Sepsis due to below Acute infectious bacterial Gastroenteritis/ Colitis Labs shows neutrophilic leukocytosis,lymphocytosis, lactic acidosis CT abdomen shows wall thickening of stomach and proximal bowel wall, and ascending colon, transverse colon, sigmoid and rectum Blood culture, stool culture ordered IV ceftriaxone 1 g daily, metronidazole 500 mg q.8 IV fluid bolus and maintenance Cholelithiasis Rule out choledocholithiasis/ obstructive common bile duct dilation Rule out GI malignancy Ultrasound shows dilated common bile duct measuring 7 mm, cholelithiasis with gallbladder wall thickening MRCP: Cholelithiasis with gallbladder wall thickening and pericholecystic fluid, suspected acute cholecystitis in the appropriate clinical setting. Hepatosplenomegaly. GI consulted Macrocytic hypochromic anemia Elevated reticulocyte count, ferritin Right pleural effusion with trace ascites Monitor clinically Hyponatremia with low serum osmolality, likely due to dehydration KAYLEIGH due to hemodynamic instability (VMN) No baseline available Discussed avoiding nephrotoxins like NSAIDS, contrast Low salt diet, maintain hydration with IV fluid bolus and maintenance Repeat BMP Hypokalemia Hypocalcemia with hypoalbuminemia; corrected calcium WNL Supplemented Monitor BMP Hepatic steatosis Alcoholic hepatitis likely Moderate splenomegaly Transaminitis Hyperbilirubinemia CT abdomen and Ultrasound shows hepatomegaly with diffuse hepatic steatosis Maddrey score 12.8; suggesting good prognosis Meld score 18 CIWA score 2 Ethanol abuse Counseled strongly on ethanol cessation over 16 minutes Drug screen negative. Negative alcohol in blood DVT ruled out Doppler ultrasound negative for DVT DIET: NPO PUD prophylaxis: protonix 40mg DVT prophylaxis: Levonox 40mg Goals of care: Full code, discussed for >16 minutes on 05/08/25 Plan discussed with patient Plan discussed with Dr. Dricsoll Plan discussed with: Patient My Orders My Orders Orders - MERRITT ANAYA Procedure Category Date Status Time Renal DIET 05/08/25 Transmitted Standard(2gna,3gk,Lopho) Lunch MERRITT ANAYA May 08, 2025 19:18
[2025-05-09 05:00] VITALS: BP 113/64; PULSE 79; RESP 18; TEMP 97.9; O2SAT 96
[2025-05-09 06:05] LABS: Hemoglobin 11.7 g/dL (13.5-17.5)
[2025-05-09 06:07] LABS: Hematocrit 32.7 % (41.0-53.0); Mean Corpuscular Hemoglobin 40.2 pg (28.0-32.0); Mean Corpuscular Volume 112.4 fL (80.0-100.0); Nucleated Red Blood Cells % 0.1 %
[2025-05-09 06:11] LABS: Anion Gap 13 (5-15); Calcium 7.7 mg/dL (8.7-10.4); Carbon Dioxide 22 mmol/L (20-31); Chloride 100 mmol/L (98-107); Potassium 3.4 mmol/L (3.5-5.1); Sodium 135 mmol/L (136-145)
[2025-05-09 08:00] VITALS: PULSE 94
[2025-05-09 08:09] LABS: BUN/Creatinine Ratio 8.6 (10.0-20.0)
[2025-05-09 08:10] LABS: Blood Urea Nitrogen 11 mg/dL (9-23); Glucose 127 mg/dL (74-106)
[2025-05-09 08:39] VITALS: BP 119/67; PULSE 94; RESP 20; TEMP 98.1; O2SAT 97
[2025-05-09 09:22] LABS: Alanine Aminotransferase 72.0 U/L (7-40); Albumin 2.5 g/dL (3.2-4.8); Alkaline Phosphatase 198.0 U/L (46-116); Bilirubin, Total 26.9 mg/dL (0.2-1.0); Total Protein 4.7 g/dL (5.7-8.2)
--- NOTE | 2025-05-09 09:22 | DVHSR ---
APPROVED REPORT EXAM: Two-dimensional and M-mode echocardiogram with Doppler and color Doppler. Blood Pressure: 117/53 mmHg INDICATION Fluid overload RISK FACTORS Height: 68, Weight: 242 DIMENSIONS LVDd5.0 (3.8-5.7cm)LA (2D)3.3 (1.9-4.0cm)Aortic Root3.3 (2.0-3.7cm) LVDs2.9 (2.5-4.0cm)LA (MM) (1.9-4.0cm)Aortic Cusp Exc1.9 (1.5-2.0cm) EF (%) 73.0 (55-70%)Rt. Atrium3.6 (1.9-4.0cm)Asc. Aorta cm IVSd1.0 (0.7-1.1cm)RV (D) (1.8-2.4cm) PWd1.1 (0.7-1.1cm) Mitral Valve MitralMitral Stenosis E wave1.05m/sMV Mean GR.mmHg A wave0.76m/sMV Peak GR.63mmHg E/A ratio1.42D MVAcm2 DECEL [id number] 1/2 [id number] IVRTmsDop MVA3.84cm2 Aortic Valve Aortic ValveAortic Stenosis V11.55m/Tony Mean GR.8mmHg V21.87m/Tony Peak GR.14mmHg LVOT Diameter2.0 (1.8-2.4cm)Doppler AVA2.60cm2 Pulmonic Valve V21.08m/s Tricuspid Valve TR Velocity2.34m/s [id number] Conclusion NORMAL LV EF AND IS 70% NORMAL VALVES NORMAL RV FUNCTION NO EFFUSION
[2025-05-09] MEDS: POTASSIUM EFFERVESENT TAB 25 MEQ PO ONE (09:45)
[2025-05-09 09:57] LABS: Bilirubin, Direct 19.3 mg/dL (<0.3)
[2025-05-09 10:20] LABS: Hepatitis B Surface Antigen Negative (Negative); Hepatitis C Antibody Negative (Negative)
[2025-05-09 12:51] VITALS: BP 127/82; PULSE 89; RESP 16; TEMP 97.6; O2SAT 98
[2025-05-09] MEDS ORDERED: BACDST PO (13:30)
[2025-05-09] MEDS ORDERED: LACT10SO3 PO (13:30)
[2025-05-09] MEDS ORDERED: AUG875T PO (13:30)
[2025-05-09] MEDS ORDERED: PRED20TA2 PO ×2 (13:30→14:32)
--- NOTE | 2025-05-09 13:32 | DVHDSRES ---
Discharge Summary Date of Admission Resident Creating Document: MERRITT ANAYA RESIDENT May 07, 2025 at 23:34 Date of Discharge: May 09, 2025 Labs/Diagnostic Data: Laboratory Results Test 05/09/25 05:42 05/08/25 14:41 05/08/25 13:11 05/08/25 10:39 White Blood Count 8.6 10^3/uL (4.4-10.8) Red Blood Count 2.91 10^6/uL (4.5-5.90) Hemoglobin 11.7 g/dL (13.5-17.5) Hematocrit 32.7 % (41.0-53.0) Mean Corpuscular Volume 112.4 fL (80.0-100.0) Mean Corpuscular Hemoglobin 40.2 pg (28.0-32.0) Mean Corpuscular Hemoglobin Concent 35.7 g/dL (32.0-36.0) Red Cell Distribution Width 19.2 % (11.8-14.3) Platelet Count 246 10^3/uL (140-450) Mean Platelet Volume 6.9 fL (6.9-10.8) Neutrophils (%) (Auto) 89.3 % (37.0-80.0) Lymphocytes (%) (Auto) 6.5 % (10.0-50.0) Monocytes (%) (Auto) 3.7 % (0.0-12.0) Eosinophils (%) (Auto) 0.1 % (0.0-7.0) Basophils (%) (Auto) 0.4 % (0.0-2.0) Neutrophils # (Auto) 7.7 10 ^3/uL (1.6-8.6) Lymphocytes # (Auto) 0.6 10 ^3/uL (0.4-5.4) Monocytes # (Auto) 0.3 10 ^3/uL (0-1.3) Eosinophils # (Auto) 0 10 ^3/uL (0-0.8) Basophils # (Auto) 0 10 ^3/uL (0-0.2) Nucleated Red Blood Cells 0.1 % Sodium Level 135 mmol/L (136-145) Potassium Level 3.4 mmol/L (3.5-5.1) Chloride Level 100 mmol/L (98-107) Carbon Dioxide Level 22 mmol/L (20-31) Anion Gap 13 (5-15) Blood Urea Nitrogen 11 mg/dL (9-23) Creatinine 1.28 mg/dL (0.700-1.30) Glomerular Filtration Rate Calc 70 mL/min (>90) BUN/Creatinine Ratio 8.6 (10.0-20.0) Serum Glucose 127 mg/dL (74-106) Calcium Level 7.7 mg/dL (8.7-10.4) Total Bilirubin 26.9 mg/dL (0.2-1.0) Direct Bilirubin 19.3 mg/dL (<0.3) Aspartate Amino Transferase (AST) 216 U/L (13-40) Alanine Aminotransferase (ALT) 72 U/L (7-40) Alkaline Phosphatase 198 U/L (46-116) Total Protein 4.7 g/dL (5.7-8.2) Albumin 2.5 g/dL (3.2-4.8) Ammonia 14 umol/L (11-32) Lactic Acid Level 2.0 mmol/L (0.4-2.0) Test 05/08/25 03:45 05/08/25 02:04 05/07/25 23:47 05/07/25 21:41 B-Type Natriuretic Peptide 110.36 pg/mL (0-100) Carcinoembryonic Antigen 2.05 ng/mL (<=5.0) Thyroid Stimulating Hormone (TSH) 5.59 uIU/mL (0.55-4.78) Free Thyroxine (T4) Calculated 1.08 ng/dL (0.89-1.76) Plasma/Serum Blood Alcohol < 3.0 mg/dL (<10) Treponema pallidum Antibody Non-reactive (Negative) HIV (1&2) Antibody Negative (Negative) Stool for White Cells None seen Reticulocyte Count (auto) 2.62 % (0.5-1.5) Haptoglobin 83 mg/dL (23-355) Prothrombin Time 13.7 sec (9.3-11.8) Prothrombin Time INR 1.33 (0.9-1.15) Activated Partial Thromboplast Time 30.6 SEC (24.5-34.5) Hemoglobin A1c 4.1 % A1C (<5.7) Serum Osmolality 273 mOsm/kg (278-298) Phosphorus Level 2.3 mg/dL (2.4-5.1) Magnesium Level 2.2 mg/dL (1.6-2.6) Iron Level 73 ug/dL (65-175) Total Iron Binding Capacity 180 ug/dL (250-425) Percent Iron Saturation 40.6 % (20-55) Ferritin 659.9 ng/mL (22-322) C-Reactive Protein High Sensitivity 5.07 mg/dL (<1.0) Triglycerides Level 396 mg/dL (< 150) Cholesterol Level 203 mg/dL (< 200) LDL Cholesterol 104 mg/dL (< 100) HDL Cholesterol 7 mg/dL (40-59) Lipase 39 U/L (12-53) Tumor Marker Alpha Fetoprotein 2.2 ng/mL (0.0-6.9) CA 19-9 Antigen 279 U/mL (0-35) Vitamin B12 Level 456 pg/mL (211-911) Vitamin D 25-Hydroxy 22.4 ng/mL (30.0-100) Folic Acid 1.70 ng/mL (>5.38) Hepatitis A IgM Antibody Negative Hepatitis B Surface Antigen Negative (Negative) Hepatitis B Core IgM Antibody Negative (Negative) Hepatitis C Antibody Negative (Negative) Test 05/07/25 21:23 05/07/25 21:00 05/07/25 19:35 05/07/25 17:53 Stool Occult Blood Negative (Negative) Stool Occult Blood Sample #3 (Negative) Urine Osmolality 430 mOsm/kg Urine Opiates Screen Neg (NEGATIVE) Urine Fentanyl Screen Neg (NEGATIVE) Urine Barbiturates Screen Neg (NEGATIVE) Urine Phencyclidine Screen Neg (NEGATIVE) Urine Amphetamines Screen Neg (NEGATIVE) Urine Benzodiazepines Screen Neg (NEGATIVE) Urine Cocaine Screen Neg (NEGATIVE) Urine Cannabinoids Screen Neg (NEGATIVE) Urine Color Dark-orange (Yellow) Urine Clarity Turbid (Clear) Urine pH 6.0 (5.0-9.0) Urine Specific [place] 1.019 (1.001-1.035) Urine Protein Trace (Negative) Urine Ketones Negative (Negative) Urine Blood Negative /uL (Negative) Urine Nitrite Negative (Negative) Urine Bilirubin 4+ (Negative) Urine Urobilinogen 2 mg/dL (Negative) Urine Leukocyte Esterase Negative /uL (Negative) Urine RBC 1 /hpf (0 - 3) Urine Microscopic WBC 6 /HPF (0-3) Urine Squamous Epithelial Cells Few /hpf (<5) Urine Bacteria Mod /hpf (None Seen) Urine Mucus Few (None Seen) Urine Glucose Normal mg/dL (Normal) D-Dimer, Quantitative 0.80 mg/L FEU (0.0-0.49) Other Laboratory Tests 05/09/25 05:42 Final Diagnosis/Problems List Severe Sepsis due to below Acute infectious bacterial Gastroenteritis/ Colitis Cholelithiasis Macrocytic hypochromic anemia Right pleural effusion with trace ascites Hyponatremia with low serum osmolality, likely due to dehydration KAYLEIGH due to hemodynamic instability (VMN) Hypokalemia Hypocalcemia with hypoalbuminemia; corrected calcium WNL Hepatic steatosis Alcoholic hepatitis likely Moderate splenomegaly Transaminitis Hyperbilirubinemia Ethanol abuse DVT ruled out Discharge Disposition: Home Discharge Instruct/Medications Diet: Regular Activity: No Restrictions, As Tolerated Follow Up/Referral: Follow up in discharge clinic next Wednesday to setup primary care Medications: Prednisone 40 MG po daily Lactulose 30 Ml po dily Scheduled Amoxicillin & Pot Clavulanate (Augmentin Tablet), 875 MG PO BID Prednisone (Prednisone), 40 MG PO DAILY Sulfamethoxazole W/Trimethopri (Bactrim Ds Tablet), 1 TAB PO UD Scheduled PRN Lactulose (Lactulose), 20 GM PO DAILYP PRN Discharge Statement: "Patient was advised to return to the ER or call 911 if any headaches, dizziness, shortness of breath, chest pain, abdominal pain, bleeding, fevers, or worsening of medical condition. Patient was counseled about treatment plan, medications, possible side effects, patientverbalized understanding. All questions were answered to the best of my ability. This discharge took greater then 30 minutes in planning, reviewing documentation, counseling the patient, and discussing with other team members." ASSESSMENT ASSESSMENT Assessment Severe Sepsis due to below Acute infectious bacterial Gastroenteritis/ Colitis Cholelithiasis Macrocytic hypochromic anemia Right pleural effusion with trace ascites Hyponatremia with low serum osmolality, likely due to dehydration KAYLEIGH due to hemodynamic instability (VMN) Hypokalemia Hypocalcemia with hypoalbuminemia; corrected calcium WNL Hepatic steatosis Alcoholic hepatitis likely Moderate splenomegaly Transaminitis Hyperbilirubinemia Ethanol abuse DVT ruled out MERRITT ANAYA RESIDENT May 09, 2025 13:32
--- NOTE | 2025-05-09 16:54 | DVHPN2 ---
Progress Note Date Seen: May 09, 2025 Resident Creating Document: ANDRES PENNY RESIDENT Medical Necessity Reason Pt with a Central, PICC or Fol: No Subjective Review of Systems Patient seen and examined at bedside Notes having 2-3 bowel movements today, watery Notes having some nausea, 1 episode of vomiting yesterday Meld score Objective vital signs Vital Sign Date Time Temp Pulse Resp B/P (MAP) Pulse Ox O2 Delivery O2 Flow Rate FiO2 05/09/25 12:51 97.6 89 16 127/82 (97) 98 97.6 05/09/25 08:00 Room Air* 0 21 Total Intake and Output 05/08/25 05/08/25 05/09/25 15:00 23:00 07:00 Intake Total 2200 ml 420 ml 340 ml Balance 2200 ml 420 ml 340 ml Examination General: NAD, AAOX3 HEENT: + scleral icterus Chest: lung arora clear to auscultation Heart: RRR, no murmur Abdomen: non-distended, no tenderness to palpation, +BS Skin:+ jaundice laboratory and microbiology Laboratory Tests 05/09/25 05:42 Test 05/09/25 05:42 Range/Units Serum Glucose 127 H 74-106 mg/dL Microbiology Date/Time Source Procedure Growth Status 05/08/25 02:06 Blood Blood Culture - Preliminary NO GROWTH AFTER 24 HOURS OF INCUBATION. Resulted Labs and/or images reviewed: Labs reviewed by me, Image(s) reviewed by me Problem List/Assessment/Plan Problem List/Assessment/Plan Cholelithiasis Hepatosplenomegaly Alcoholic hepatic steatosis Heavy alcohol use Plan: Counseled patient on the importance of abstinence from alcohol, and a low-salt diet. Patient demonstrated understanding Instructed patient to follow up with GI in the outpatient clinic at his earliest convenience. Reinforced to patient to follow up in the discharge clinic on Wednesday as scheduled. After discharge, patient was noted to have an elevated CA 19-9, patient was called and finding was discussed with the patient in detail along with clinical implications, all questions were answered and concerns were addressed. Lactulose Discharge on prednisone 20 mg p.o. daily for 10 days as patient unable to complete a taper due to having insurance problems. Diet as tolerated Thank you so much for the opportunity to consult on your patient. GI team will follow the patient. In case of any questions or concerns please feel free to reach out. Plan discussed with Dr. Malcolm Plan discussed with: Patient, Spouse, Other (RN) ANDRES PENNY RESIDENT May 09, 2025 16:54
[2025-05-10 16:07] LABS: Chlamydia Trachomatis, NAA Negative (Negative); Neisseria gonorrhoeae, NAA Negative (Negative)
== END 2025-05-09 15:22 | disposition home or self-care (01) | DRG 720 ==
LOC: ER 15:43 → OVERFLOW 23:34 → TELE-EAST 05-08 03:10
PROVIDERS: ADMIT Internal Medicine Geriatric Medicine; ATTEND Internal Medicine Geriatric Medicine
DX: A41.9 Sepsis, unspecified organism (principal); N17.0 Acute kidney failure with tubular necrosis; E87.20 Acidosis, unspecified; J90 Pleural effusion, not elsewhere classified; E83.51 Hypocalcemia; K80.10 Calculus of gallbladder with chronic cholecystitis without obstruction; E88.09 Other disorders of plasma-protein metabolism, not elsewhere classified; A04.9 Bacterial intestinal infection, unspecified; K70.10 Alcoholic hepatitis without ascites; K76.0 Fatty (change of) liver, not elsewhere classified; R16.1 Splenomegaly, not elsewhere classified; E87.6 Hypokalemia; E80.6 Other disorders of bilirubin metabolism; E87.1 Hypo-osmolality and hyponatremia; E86.0 Dehydration; R65.20 Severe sepsis without septic shock; I10 Essential (primary) hypertension; D50.9 Iron deficiency anemia, unspecified; R18.8 Other ascites; R16.2 Hepatomegaly with splenomegaly, not elsewhere classified; F10.10 Alcohol abuse, uncomplicated; Z87.891 Personal history of nicotine dependence; Z79.899 Other long term (current) drug therapy; Y90.0 Blood alcohol level of less than 20 mg/100 ml
CPT/HCPCS: 36415; 71045; 74176; 74181; 76705; 80048; 80053; 80061; 80074; 80076; 80307; 80320; 81001; 82105; 82140; 82248; 82270; 82306; 82378; 82607; 82728; 82746; 83010; 83036; 83540; 83550; 83605; 83690; 83735; 83880; 83930; 83935; 84100; 84132; 84439; 84443; 85014; 85018; 85025; 85045; 85048; 85379; 85610; 85730; 86141; 86301; 86703; 86780; 86850; 86900; 86901; 87040; 93306; 93971; 96365; 96368; G0378; J2470; J3480; J3490